=== PATIENT | male | born 1970 | race Caucasian/White ===

== ENCOUNTER 2018-04-07 10:03 | Emergency (ER) | payer BC, OTHER ==
[2018-04-07] MEDS ORDERED: Ketorolac 30 MG/ML SDV IVPUSH ONE (11:02)
[2018-04-07] MEDS ORDERED: Sodium Chloride 0.9% 10 ML Syringe FLUSH PRN ×2 (11:02→11:12)
--- NOTE | 2018-04-07 11:08 | EDM.PDOC ---
ED HPI GENERAL MEDICAL PROBLEM - General Chief Complaint: Upper Extremity Injury/Pain Stated Complaint: FALL-LEFT SIDE AND ARM PAIN Time Seen by Provider: 04/07/18 10:47 Source of Information: Reports: Patient History Limitations: Reports: No Limitations - History of Present Illness INITIAL COMMENTS - FREE TEXT/NARRATIVE: 47-year-old male presents for evaluation and treatment of injuries sustained from a fall. Patient reports a fall occurred about 2 days ago. States that he fell out of his truck, approximate 4 feet. Landed on his left side. He was seen at [facility] where he had x-rays done. Sent home with hydrocodone 7.5-325 and Flexeril 10 mg 3 times a day. He has been taking this as prescribed continues to have significant pain. He reports pain to the left lateral chest, left shoulder and left elbow. He has an abrasion to the left elbow. He did not hit his head or having loss of consciousness during this accident. No neck pain. He reports that it is painful to breathe and does not feel taking a full breath in. Duration: Day(s): (2) Left Chest Pain Score (Numeric/FACES): 8 - Related Data Allergies Allergy/AdvReac Type Severity Reaction Status Date / Time No Known Allergies Allergy Verified 04/07/18 10:19 Home Meds: Home Meds Cyclobenzaprine [Flexeril] 10 mg PO TID PRN 04/07/18 [History] Hydrocodone/Acetaminophen [Hydrocodon-Acetaminoph 7.5-325] 1 each PO TID PRN [History] Ketorolac [Toradol] 10 mg PO TID PRN #15 tab 04/07/18 [Rx] Losartan [Cozaar] 25 mg PO DAILY 04/07/18 [History] Rosuvastatin Calcium 40 mg PO DAILY 04/07/18 [History] Past Medical History Cardiovascular History: Reports: High Cholesterol, Hypertension Social & Family History - Tobacco Use Smoking Status *Q: Current Every Day Smoker Years of Tobacco use: 25 Packs/Tins Daily: 1 - Alcohol Use Days Per Week of Alcohol Use: 7 Number of Drinks Per Day: 2 Total Drinks Per Week: 14 - Recreational Drug Use Recreational Drug Use: No Review of Systems - Review of Systems Review Of Systems: See Below Ears: Denies: Dizziness Respiratory: Reports: Shortness of Breath, Other (dyspnea) Cardiovascular: Reports: Chest Pain (left lateral chest pain). Denies: Lightheadedness GI/Abdominal: Denies: Abdominal Pain, Nausea, Vomiting Musculoskeletal: Reports: Shoulder Pain (left), Arm Pain (elbow), Joint Pain ( left elbow). Denies: Neck Pain Neurological: Denies: Dizziness, Headache, Syncope ED EXAM, GENERAL - Physical Exam Exam: See Below Exam Limited By: No Limitations General Appearance: Alert, WD/WN, Moderate Distress (with movement, no distress at rest) Eye Exam: Bilateral Eye: Normal Inspection, PERRL Ears: Normal External Exam Nose: Normal Inspection Throat/Mouth: Normal Inspection, Normal Lips, Normal Voice, No Airway Compromise Head: Atraumatic, Normocephalic Neck: Normal Inspection, Non-Tender, Full Range of Motion Respiratory/Chest: No Respiratory Distress, Lungs Clear, Normal Breath Sounds, Other (chest tender, left lateral around ribs 5-8) Cardiovascular: Normal Peripheral Pulses, Regular Rate, Rhythm, No Murmur GI/Abdominal: Normal Bowel Sounds, Soft, Non-Tender Back Exam: Normal Inspection Neurological: Alert, Oriented, Normal Cognition Psychiatric: Normal Affect, Normal Mood Skin Exam: Warm, Dry, Normal Color, Wound/Incision (abraion to the left elbow) Course - Vital Signs Last Recorded V/S: Last Vital Signs Temp 98 F 04/07/18 10:16 Pulse 69 04/07/18 10:16 Resp 16 04/07/18 10:16 BP 147/109 H 04/07/18 10:16 Pulse Ox 99 04/07/18 10:16 - Orders/Labs/Meds Orders: Active Orders 24 hr Category Date Time Status Peripheral IV Care [RC] . DIRECTED Care 04/07/18 11:06 Active Chest w Cont [CT] Stat Exams 04/07/18 11:02 Taken Elbow Min 3V Lt [CR] Stat Exams 04/07/18 11:02 Taken Shoulder Comp Lt [CR] Stat Exams 04/07/18 11:02 Taken UA W/MICROSCOPIC [URIN] Stat Lab 04/07/18 12:38 Ordered Peripheral IV Insertion Adult [OM.PC] Routine Oth 04/07/18 11:01 Ordered Labs: Laboratory Tests 04/07/18 Range/Units 12:38 Urine Color Yellow (Yellow) Urine Appearance Clear (Clear) Urine pH 6.5 (5.0-8.0) Ur Specific [place] 1.010 (1.005-1.030) Urine Protein Negative (Negative) Urine Glucose (UA) Negative (Negative) Urine Ketones Negative (Negative) Urine Occult Blood Negative (Negative) Urine Nitrite Negative (Negative) Urine Bilirubin Negative (Negative) Urine Urobilinogen 0.2 (0.2-1.0) Ur Leukocyte Esterase Negative (Negative) Urine RBC Not seen (0-5) /hpf Urine WBC Not seen (0-5) /hpf Ur Epithelial Cells 0-5 (0-5) /hpf Urine Bacteria Not seen (FEW) /hpf Urine Mucus Not seen (FEW) /hpf Meds: Medications Discontinued Medications Generic Name Dose Route Start Last Admin Trade Name Freq PRN Reason Stop Dose Admin Iopamidol 100 ml 04/07/18 11:12 Isovue-300 (61%) IVPUSH 04/07/18 11:13 ONETIME ONE Ketorolac Tromethamine 30 mg 04/07/18 11:02 04/07/18 11:38 Toradol IVPUSH 04/07/18 11:03 30 mg ONETIME ONE Administration Sodium Chloride 10 ml 04/07/18 11:02 04/07/18 11:37 Saline Flush FLUSH 10 ml ASDIRECTED PRN Administration Keep Vein Open Sodium Chloride 10 ml 04/07/18 11:12 04/07/18 11:37 Saline Flush FLUSH 10 ml ONETIME PRN Administration IV FLUSH - Radiology Interpretation Free Text/Narrative:: CT of the chest with IV contrast impression per Vrad: opacities in the lingula and both lower lobes may represent atelectasis or pneumonia. X-ray of the left elbow shows a small fat pad sign. No obvious fracture dislocation. X-ray of the left should shows no acute fracture. Humerus is rather high in the glenoid fossa. Consider rotator cuff tear. - Re-Assessments/Exams Free Text/Narrative Re-Assessment/Exam: 04/07/18 12:28 Patient is reporting good pain control with the Toradol. Will obtain labs. His chest CT looks like he has a small left-sided pleural effusion. No obvious fracture seen on shoulder x-ray or elbow x-ray. Awaiting formal radiology reads. Suspect a rotator cuff tear to the shoulder. He declined anything more for pain as he would like to ideally go home today and would like to drive home. 04/07/18 14:[address] results the patient, no effusion. Will discharge home. Recommend symptomatic care. Follow-up with orthopedic; he does have a shoulder sling at home that he should utilize. I will send him home with a few tablet Toradol ast this did greatly help with his pain. He did not get much relief with the hydrocodone. discharge instructions as documented. Departure - Departure Time of Disposition: 14:09 Disposition: Home, Self-Care 01 Condition: Fair Clinical Impression: Shoulder injury, Elbow abrasion, Bruised ribs - Discharge Information *PRESCRIPTION DRUG MONITORING PROGRAM REVIEWED*: No *COPY OF PRESCRIPTION DRUG MONITORING REPORT IN PATIENT NICCI: No Prescriptions: Ketorolac [Toradol] 10 mg PO TID PRN #15 tab PRN Reason: Pain Instructions: Abrasion Referrals: PCP,Not In Area [Primary Care Provider] - Kevin Scott MD [Physician] - Forms: ED Department Discharge Additional Instructions: wear the shoulder sling at all times. Recommend toradol 1 tab PO tid prn pain. No more than 5 days of this medication. For pain not relieved by toradol, may take your Flexeril and [place] as needed for additional pain relief. Recommend ice or heat for additional pain relief. Follow-up with orthopedics in 1-[address] Scott here at the [facility]. Call [phone] to schedule with him. Please return to the ER if your symptoms change or worsen. - My Orders Last 24 Hours: My Active Orders 04/07/18 11:01 Peripheral IV Insertion Adult [OM.PC] Routine 04/07/18 11:02 Chest w Cont [CT] Stat Elbow Min 3V Lt [CR] Stat Shoulder Comp Lt [CR] Stat 04/07/18 11:06 Peripheral IV Care [RC] . DIRECTED 04/07/18 12:38 UA W/MICROSCOPIC [URIN] Stat - Assessment/Plan Last 24 Hours: My Active Orders 04/07/18 11:01 Peripheral IV Insertion Adult [OM.PC] Routine 04/07/18 11:02 Chest w Cont [CT] Stat Elbow Min 3V Lt [CR] Stat Shoulder Comp Lt [CR] Stat 04/07/18 11:06 Peripheral IV Care [RC] . DIRECTED 04/07/18 12:38 UA W/MICROSCOPIC [URIN] Stat
[2018-04-07] MEDS ORDERED: Iopamidol 612 MG/ML 100 ML Bottle IVPUSH ONE (11:12)
== END 2018-04-07 14:19 | disposition home or self-care (01) ==
LOC: JD.ED 10:03
DX: S20.212A Contusion of left front wall of thorax, initial encounter (principal); S20.211A Contusion of right front wall of thorax, initial encounter; S49.92XA Unspecified injury of left shoulder and upper arm, initial encounter; S50.312A Abrasion of left elbow, initial encounter; I10 Essential (primary) hypertension; E78.00 Pure hypercholesterolemia, unspecified; F17.210 Nicotine dependence, cigarettes, uncomplicated; Z79.899 Other long term (current) drug therapy; W17.89XA Other fall from one level to another, initial encounter
CPT/HCPCS: 71260; 73030; 73080; 81001; 96374; 99284; J1885; J7050

== ENCOUNTER 2023-08-08 07:13 | Emergency (ER) | payer OTHER ==
[2023-08-08] MEDS ORDERED: Metoprolol Tartrate 5 MG/5 ML SDV IVPUSH ONE (08:01)
[2023-08-08] MEDS ORDERED: Loratadine 10 MG Tab PO ONE (08:03)
== END 2023-08-08 08:15 | disposition home or self-care (01) ==
LOC: JD.ED 07:13
DX: B09 Unspecified viral infection characterized by skin and mucous membrane lesions (principal); I10 Essential (primary) hypertension; E78.00 Pure hypercholesterolemia, unspecified; Z79.899 Other long term (current) drug therapy
CPT/HCPCS: 99282; A9270

== ENCOUNTER 2024-11-01 06:32 | Day surgery (SDC) | payer OTHER ==
[~2024-11-01 06:32] MED LIST: Lactated Ringers 1,000 ML IV SCH; Sodium Chloride 0.9% 10 ML Syringe FLUSH PRN; Sodium Chloride 0.9% 10 ML Syringe FLUSH SCH
[2024-11-01] MEDS ORDERED: propofoL 500 MG/50 ML 50 ML ONE (06:38)
[2024-11-01] MEDS ORDERED: Lidocaine 2% 5 ML SDV ONE (06:42)
[2024-11-01] MEDS: Lactated Ringers 1,000 ML IV SCH (07:00)
[2024-11-01] MEDS: Albuterol/Ipratropium 3.0-0.5 MG/3 ML Neb Soln NEB ONE (07:03)
[2024-11-01] MEDS ORDERED: Propofol 200 MG/20 ML SDV ONE ×2 (07:34→07:51)
== END 2024-11-01 08:55 | disposition home or self-care (01) ==
LOC: JD.SDS 06:32
PROVIDERS: ATTEND Surgery
DX: Z12.11 Encounter for screening for malignant neoplasm of colon (principal); D12.3 Benign neoplasm of transverse colon; K21.9 Gastro-esophageal reflux disease without esophagitis; K44.9 Diaphragmatic hernia without obstruction or gangrene; K64.0 First degree hemorrhoids; I10 Essential (primary) hypertension; E78.00 Pure hypercholesterolemia, unspecified; F32.A Depression, unspecified; F41.9 Anxiety disorder, unspecified; F17.210 Nicotine dependence, cigarettes, uncomplicated; Z79.899 Other long term (current) drug therapy
CPT/HCPCS: 43239; 45380; C9777; J2003; J2704; J7120; J7620; 00813; A9270-GY